=== PATIENT | male | born 1990 | race Caucasian/White ===

== ENCOUNTER → 2018-01-09 | Outpatient (CLI) | payer OTHER ==
[~2018-01-09] MED LIST: AZIT500T47 PO; BENZ-23 PO; HYDR473S4 PO; LOR5/325 PO; METH18ERPT PO; METH5TAB85 PO; TYLENOL
== END ==
LOC: LAB 09:41
PROVIDERS: ATTEND Nurse Practitioner Primary Care
DX: J02.9 Acute pharyngitis, unspecified (principal)
CPT/HCPCS: 87081